=== PATIENT | male | born 1955 | race Caucasian/White ===

== ENCOUNTER 2017-05-09 08:54 | Day surgery (SDC) | payer BC ==
[~2017-05-09] VITALS: Ht 180.3 cm; Wt 114.6 kg
[2017-05-09] MEDS ORDERED: LIPITOR 40MG TA40 MG PO (09:10)
[2017-05-09 09:11] VITALS: BP 170/97; PULSE 77; TEMP 97.3
[2017-05-09] MEDS ORDERED: COZAAR 50MG50 MG/TAB PO (09:11)
[2017-05-09 11:20] VITALS: BP 153/94; PULSE 86; TEMP 97.1
[2017-05-09 11:35] VITALS: BP 160/99; PULSE 75
[2017-05-09 13:59] VITALS: BP 150/97; PULSE 72
== END 2017-05-09 11:50 | disposition home or self-care (01) ==
LOC: SDCO 08:54
DX: Z12.11 Encounter for screening for malignant neoplasm of colon (principal); D12.8 Benign neoplasm of rectum; I10 Essential (primary) hypertension
CPT/HCPCS: OP; J2250; J2405; J3010; J7030